=== PATIENT | female | born 1985 | race Caucasian/White ===

== ENCOUNTER 2024-07-23 13:33 | Emergency (ER) | payer OTHER, SELFPAY ==
[2024-07-23 13:37] VITALS: BP 129/84
--- NOTE | 2024-07-23 14:17 | ED.SKININJ ---
HPI-Injury
General
Chief Complaint: Head Injury
Source: patient
Exam Limitations: none
Time Seen by Provider: 07/23/24 14:10
History of Present Illness-Injury
Initial Injury comments:
39-year-old female presents for evaluation of head injury. She injured herself last evening. She woke up from sleeping went to go to the bathroom to turn the light on the bathroom and next thing she remembers she was waking up on the bathroom
floor pale sweaty and cold. She denies any preceding chest pain. She works as a veterinary nurse and noticed that the loud noises of the dogs barking were bothering her today. She also notes soreness to the back of her head. She denies neck
pain. She notes she feels tired and slightly out of it. No further dizziness. She is not anticoagulated. No other complaint
Phy Exam
Physical Exam
Physical Exam:
General: Well-appearing female no acute respiratory distress
HEENT: Normocephalic pupils equal round reactive to light tenderness noted to the posterior scalp without obvious hematoma or laceration
Heart: Regular rate and rhythm no murmurs
Lungs: Clear no wheeze
Musculoskeletal exam: Cervical spine is not tender
Neurologic: Alert normal gait conversing appropriately face is symmetric
Ext: no cyanosis.
Course
Orders/Labs/Results
Orders:
Orders
07/23/24 13:40
CT Head W/o Iv Contrast Urgent
Comment:
Reason For Exam: head injury, memory loss
Vital Signs
Initial and Last Documented VS:
Initial Vital Signs
Temp Pulse Resp BP Pulse Ox
98.0 F 84 16 129/84 100
07/23/24 13:37 07/23/24 13:37 07/23/24 13:37 07/23/24 13:37 07/23/24 13:37
Last Documented Vital Signs
Temp Pulse Resp BP Pulse Ox
98.0 F 84 16 129/84 100
07/23/24 13:37 07/23/24 13:37 07/23/24 13:37 07/23/24 13:37 07/23/24 13:37
MDM/Problems Addressed
Differential Diagnosis Includes:
Fall with head injury. Question contusion versus fracture versus intracranial hemorrhage versus concussion. I suspect vasovagal episode. Low suspicion for seizure
CT of the head pending. Patient was seen at the urgent care and sent here for evaluation
*Critical Care Note
Total Time (30-74mins, 75-104mins- exclusive of procedures): Not Applicable
Update Note
Update Note:
CT head negative. Patient reassured. Stable for discharge
ED Attending Note
-
Portions of this chart may have been created with voice recognition software.� Occasional wrong word or��sound alike� substitutions may have occurred due to the inherent limitations of voice recognition software.
Discharge Plan
Departure
Patient Disposition: Home (Routine Discharge)
Date of Disposition: 07/23/24
Time of Disposition: 15:38
Patient with high blood pressure during this ER visit?: No
Discharge Problem:
Head injury
Instructions: Concussion, Adult (DC)
Referrals:
Curtis Li MD [Family Provider] -
Activity Restrictions/Additional Instructions:
Rest. Use ibuprofen or Tylenol for pain peer return if worse otherwise follow-up with your family doctor
Interventions
Interventions:
*General Assessment Last Done: 07/23/24 14:18
ED- Fall Risk Assessment Last Done: 07/23/24 14:19
*ED COVID-19 Vaccine History Last Done: 07/23/24 14:18
ED- Neurological Assessment Last Done: 07/23/24 14:20
ED-Skin Assessment Last Done: 07/23/24 14:20
Discharge Date and Time
Print Language: [id number]
[2024-07-23 14:18] VITALS: BMI 27.5
== END 2024-07-23 15:47 | disposition home or self-care (01) ==
LOC: EMR 13:33
PROVIDERS: EMERGENCY PHYSICIAN Emergency Medicine; FAMILY PHYSICIAN Family Medicine
DX: S09.90XA Unspecified injury of head, initial encounter (principal); R53.83 Other fatigue; W18.39XA Other fall on same level, initial encounter
CPT/HCPCS: 99284; 70450